=== PATIENT | female | born 1985 | race Caucasian/White ===

== ENCOUNTER 2022-12-24 07:30 | Outpatient (REF) | payer BC, SELFPAY ==
[2022-12-24 13:07] LABS: MANUAL DIFF FLAG NO
[2022-12-24 13:19] LABS: Basophils Percent Auto 0.5 % (0-2); Eosinophils Percent Auto 0.5 % (0-4); Hematocrit 35.7 % (37.0-47.0); Hemoglobin 11.9 g/dl (12.0-16.0); Imm Gran Abs Auto 0.01 X10*3/uL (0.00-0.03); Imm Gran Pct Auto 0.2 % (0.0-0.4); Lymphocytes Absolute Auto 1.7 X10*3/uL (1.2-4.9); Lymphocytes Percent Auto 40.5 % (20-40); Mean Corpuscular HGB Conc 33.3 g/dl (31.0-35.0); Mean Corpuscular Hemoglobin 29.2 pg (27.0-33.0); Mean Corpuscular Volume 87.7 fL (80.0-98.0); Mean Platelet Volume 10.7 fL (9.4-12.3); Monocytes Absolute Auto 0.3 X10*3/uL (0.1-1.2); Monocytes Percent Auto 6.1 % (2-11); Neutrophils Absolute Auto 2.2 x10*3/uL (2.0-8.3); Neutrophils Percent Auto 52.2 % (45-73); Platelet Count 237 X10*3/uL (160-400); Red Blood Count 4.07 X10*6/uL (4.20-5.50); Red Cell Distribution Width 12.7 % (11.0-16.0); White Blood Count 4.3 X10*3/uL (4.8-10.8)
[2022-12-24 13:33] LABS: Estimated Average Glucose 97 mg/dL
[2022-12-24 13:43] LABS: Alanine Aminotransferase 13 U/L (0-31); Albumin Level 3.9 g/dL (3.5-5.0); Alkaline Phosphatase 61 U/L (39-117); Anion Gap 13 (12-20); Aspartate Amino Transferase 20 U/L (5-31); Bilirubin Total 0.3 mg/dL (0.0-1.0); Blood Urea Nitrogen 12 mg/dL (9-16); Calcium 9.4 mg/dL (8.4-10.2); Carbon Dioxide 25 mmol/L (22-29); Chloride 106 mmol/L (96-108); Cholesterol 180 mg/dL (<200); Estimated Glomerular Filt Rate > 60; Glucose Random 79 mg/dL (60-115); HDL Cholesterol 63 mg/dL (>40); Iron 69 mcg/dL (30-160); LDL Cholesterol Calculated 103 mg/dL (<100); Percent Iron Saturation 19 % (15-50); Potassium 3.8 mmol/L (3.3-5.1); Sodium 140 mmol/L (135-145); Total Iron Binding Capacity 357 mcg/dL (228-428); Total Protein 7.8 g/dL (6.5-8.0); Triglycerides 71 mg/dL (<150); Unsaturated Iron Binding 288 ug/dL
[2022-12-24 13:59] LABS: Vitamin D 25-OH Total 54.8 ng/mL (>30)
[2022-12-24 14:04] LABS: Vitamin B12 355 pg/mL (200-900)
== END 2022-12-24 07:31 | disposition home or self-care (01) ==
LOC: HO.MANLDS 07:30
PROVIDERS: Visit Provider Physician Assistant
DX: Z00.00 Encounter for general adult medical examination without abnormal findings (principal)
CPT/HCPCS: 36415; 80053; 80061; 82306; 82607; 82746; 83036; 83540; 84443; 85025